=== PATIENT | male | born 1960 | race Two or more races ===

== ENCOUNTER → 2016-08-26 | Outpatient (CLI) | payer MEDICARE, OTHER ==
[2014-10-27 19:55] VITALS: BP 126/68
[~2016-08-26] MED LIST: ACET500T33 PO; CARV6.25 PO; DICL25TA PO; DIPH25CA58 PO; EPIN0.3A4 IJ; FAMO-63 PO; IBUP200T43 PO; LANS30CA66 PO; LOVA20TA2 PO; NAPR220C4 PO; PANT40TA3 PO; PRED20TA PO
--- NOTE | 2016-08-26 11:27 | RAD ---
CT scan of the chest without contrast 08/26/2016 Clinical history: History of pulmonary nodules. Technique: Unenhanced, contiguous, 3 mm axial sections were obtained to the chest and upper abdomen. Findings: Comparison study is dated 07/28/2012. The heart is normal in size. The thoracic aorta is mildly tortuous but tapers normally. Scattered coronary artery calcifications are seen. No hilar, mediastinal or axillary lymphadenopathy is seen. A 3 mm noncalcified nodular opacity is seen involving superior aspect of the right upper lobe (image #16). A 2.5 mm pleural-based nodular opacity is seen more inferiorly involving the right upper lobe (image #25). A 4 mm nodular opacity is seen involving the left lower lobe (image #83) 2 nodular opacities are seen involving the anterior aspect of the left upper lobe which measure 2 mm in size (image #20 and 22). These nodules are unchanged. No new pulmonary nodule is seen. No acute pulmonary infiltrate is noted. No pleural effusion or pneumothorax is seen. Images through the upper abdomen demonstrate decreased attenuation of the liver parenchyma consistent with mild fatty infiltration. Degenerative changes are seen involving the thoracic spine. Impression: Stable CT appearance of the small nodular opacities involving both lungs. No new pulmonary nodule is seen.
== END | disposition home or self-care (01) ==
LOC: CT 07:47
PROVIDERS: ATTEND Nurse Practitioner Family
DX: R91.8 Other nonspecific abnormal finding of lung field (principal)
CPT/HCPCS: 71250